=== PATIENT | male | born 1970 | race Caucasian/White ===

== ENCOUNTER → 2018-04-04 | Outpatient (CLI) | payer BC ==
[2018-04-04 10:14] LABS: Basophils % (A) 1 %; Eosinophils # (A) 0.2 k/uL (0-0.7); Eosinophils % (A) 3 %; HCT 48.6 % (39.0-53.0); HGB 15.9 gm/dL (13.0-17.5); Lymphocytes # (A) 1.8 k/uL (1.0-4.8); Lymphocytes % (A) 32 %; MCH 32.6 pg (25.0-35.0); MCHC 32.6 g/dL (31.0-37.0); MCV 99.9 fL (80.0-100.0); Mean Platelet Volume 7.6; Monocytes # (A) 0.3 k/uL (0-1.0); Monocytes % (A) 6 %; Neutrophils # (A) 3.1 k/uL (1.3-7.7); Neutrophils % (A) 56 %; Platelet Count 226 k/uL (150-450); RBC 4.87 m/uL (4.30-5.90); RDW 12.7 % (11.5-15.5); WBC 5.5 k/uL (3.8-10.6)
[2018-04-04 17:12] LABS: Albumin 4.4 g/dL (3.80-4.90); Albumin/Globulin Ratio 1.91 (1.60-3.17); Anion Gap 5.1 mmol/L (4.00-12.00); Calcium 9.3 mg/dL (8.7-10.3); Carbon Dioxide 27.9 mmol/L (21.6-31.8); Globulin 2.3 g/dL (1.6-3.3); LDL Cholesterol,Calculated 77.8 mg/dL (0.0-131.0); Potassium 4.8 mmol/L (3.5-5.5); Total Bilirubin 0.9 mg/dL (0.3-1.2); Total Protein 6.7 g/dL (6.2-8.2); VLDL Calculation 17.2 mg/dL (5.00-40.00)
== END | disposition home or self-care (01) ==
LOC: LABWHC1 09:13
PROVIDERS: ATTEND Family Medicine
DX: Z00.00 Encounter for general adult medical examination without abnormal findings (principal); R68.82 Decreased libido; Z12.5 Encounter for screening for malignant neoplasm of prostate
CPT/HCPCS: 36415; 80053; 80061; 82672; 84153; 84402; 84403; 84443; 85025

== ENCOUNTER 2020-05-19 13:09 | Emergency (ER) | payer BC, OTHER ==
[2020-05-19 13:45] VITALS: RESP 22; TEMP 98.9
--- NOTE | 2020-05-19 13:47 | ED ---
General Adult HPI - General Source: patient, RN notes reviewed Mode of arrival: ambulatory Limitations: no limitations <Franco Ramesh - Last Filed: 05/19/20 13:44> <Shanel Guan - Last Filed: 05/19/20 16:37> - General Stated complaint: cough/chest tightness Time Seen by Provider: 05/19/20 13:40 - History of Present Illness Initial comments: 49-year-old male presents emergency Department with chief complaint nasal congestion cough bodyaches. Patient states that symptoms started on Friday. Patient is have test on Friday but has not received results. Symptoms seemed to worsen last 24 hours with shortness of breath. Patient denies any history of hypertension diabetes she does have child has history of asthma. No abdominal issues. Patient has NO KNOWN DRUG ALLERGIES. (Franco Ramesh) Patient denies any fevers or chills. He states his is currently Covid positive. He denies any chest pains. Denies any abdominal pains, nausea or vomiting. He has no further complaints. (Shanel Guan) - Related Data Allergies Allergy/AdvReac Type Severity Reaction Status Date / Time No Known Allergies Allergy Verified 05/19/20 13:44 Review of Systems ROS Other: All systems not noted in ROS Statement are negative. <Franco Ramesh - Last Filed: 05/19/20 13:44> ROS Other: All systems not noted in ROS Statement are negative. <Shanel Guan - Last Filed: 05/19/20 16:37> ROS Statement: Those systems with pertinent positive or pertinent negative responses have been documented in the HPI. Past Medical History Past Medical History: Asthma History of Any Multi-Drug Resistant Organisms: None Reported Past Surgical History: No Surgical Hx Reported Past Psychological History: No Psychological Hx Reported Smoking Status: Never smoker Past Alcohol Use History: None Reported Past Drug Use History: None Reported <Franco Ramesh - Last Filed: 05/19/20 13:44> General Exam Limitations: no limitations General appearance: alert, in no apparent distress Head exam: Present: atraumatic, normocephalic, normal inspection Neck exam: Present: normal inspection. Absent: tenderness, meningismus, lymphadenopathy Respiratory exam: Present: normal lung sounds bilaterally. Absent: respiratory distress, wheezes, rales, rhonchi, stridor Cardiovascular Exam: Present: regular rate, normal rhythm, normal heart sounds. Absent: systolic murmur, diastolic murmur, rubs, gallop, clicks Neurological exam: Present: alert, oriented X3 Skin exam: Present: warm, dry, intact, normal color. Absent: rash <Franco Ramesh - Last Filed: 05/19/20 13:44> <Shanel Guan - Last Filed: 05/19/20 16:37> - General Exam Comments Initial Comments: GENERAL: Patient is well-developed and well-nourished. Patient is nontoxic and in no acute distress. HEAD: Atraumatic, normocephalic. EYES: Pupils equal round and reactive to light, extraocular movements intact, sclera anicteric, conjunctiva are normal. Eyelids were unremarkable. ENT: Nares patent, oropharynx clear without exudates. Moist mucous membranes. NECK: Normal range of motion, supple without lymphadenopathy or JVD. LUNGS: Unlabored respirations. Breath sounds clear to auscultation bilaterally and equal. No wheezes rales or rhonchi. HEART: Regular rate and rhythm without murmurs, rubs or gallops. ABDOMEN: Soft, nontender, normoactive bowel sounds. No guarding, no rebound. No masses appreciated. : Deferred MUSCULOSKELETAL: Normal extremities with adequate strength and normal range of motion, no pitting or edema. No clubbing or cyanosis. NEUROLOGICAL: Patient is alert and oriented x 3. Motor and sensory are also intact. Cranial nerves II through XII grossly intact. Symmetrical smile. Normal speech, normal gait. PSYCH: Normal mood, normal affect. SKIN: Warm, Dry, normal turgor, no rashes or lesions noted. (Shanel Guan) Course Vital Signs 05/19/20 13:42 Temperature 98.9 F Pulse Rate 102 H Respiratory 22 Rate Blood Pressure 128/97 O2 Sat by Pulse 98 Oximetry Medical Decision Making <Shanel Guan - Last Filed: 05/19/20 16:37> - Medical Decision Making Patient is a 49-year-old male here with covid-like symptoms for the past 4 days. Patient's covid Test is positive. X-ray shows some stringy atelectasis, no acute process seen. Patient did meet qualification for cold antiviral infusion. He did receive this antiviral treatment, no adverse side effects. Patient will be discharged him, he can continue with Tylenol Motrin for any symptoms. He is in agreement this plan of care. Return parameters were discussed with the patient he verbalizes understanding. Case discussed with Dr. Shrestha. (Shanel Guan) - Lab Data Lab Results 05/19/20 Range/Units 13:47 Coronavirus (PCR) Detected A (Not Detectd) Disposition <Franco Ramesh - Last Filed: 05/19/20 13:44> Is patient prescribed a controlled substance at d/c from ED?: No Time of Disposition: 16:37 <Shanel Guan - Last Filed: 05/19/20 16:37> Clinical Impression: COVID-19 Disposition: HOME SELF-CARE Condition: Stable Instructions (If sedation given, give patient instructions): Coronavirus Disease 2019 (COVID-19) Additional Instructions: Please return to the Emergency Department if symptoms worsen or any other concerns. Continue Tylenol and Motrin for fever and body aches. May take [id number] cough syrup. Increase fluid intake. Follow up with your PCP. Referrals: Richmond Chen MD [Primary Care Provider] - 1-2 days
[2020-05-19] MEDS ORDERED: BAMLANIVIMAB (EUA) 700 MG, ETESEVIMAB (EUA) 1,400 MG in SODIUM CHLORIDE 0.9% 50 ML IVPB ONE (15:30)
[2020-05-19] MEDS ORDERED: SODIUM CHLORIDE 0.9% 50 ML IVPB ONE (16:00)
--- NOTE | 2020-05-19 16:01 | XR ---
EXAMINATION TYPE: XR chest 2V DATE OF EXAM: 05/19/2020 COMPARISON: None HISTORY: 49-year-old male with cough TECHNIQUE: PA and lateral views FINDINGS: The cardiomediastinal silhouette, aorta, and pulmonary vasculature are within normal limits. Extremit y atelectasis in the right lower lung. Otherwise, lungs and pleural spaces are clear. IMPRESSION: Some strandy atelectasis. No acute process seen.
[2020-05-19 17:33] VITALS: BP 124/86; PULSE 76
== END 2020-05-19 17:36 | disposition home or self-care (01) ==
LOC: EC 13:09
DX: U07.1 COVID-19 (principal); J45.909 Unspecified asthma, uncomplicated
CPT/HCPCS: 87635; 71046; 99285; 96365; Q0245